=== PATIENT | male | born 1950 | race Caucasian/White ===

== ENCOUNTER 2018-03-02 09:41 | Emergency (ER) | payer MEDICARE ==
[~2018-03-02] VITALS: Ht 177.8 cm; Wt 98.0 kg
[2018-03-02] MEDS ORDERED: LIPITOR10 MG PO (09:53)
[2018-03-02] MEDS ORDERED: PIOGLITAZONE15 MG (09:53)
[2018-03-02] MEDS ORDERED: METFORMIN HCL500 MG PO (09:53)
[2018-03-02] MEDS ORDERED: IBUPROFEN 800800 M1 PO (11:40)
[2018-03-02] MEDS ORDERED: ROBAXIN500 MG PO (11:40)
[2018-03-02 11:56] VITALS: BP 134/63
== END 2018-03-02 11:57 | disposition home or self-care (01) ==
LOC: M.ERS 09:41
DX: M50.121 Cervical disc disorder at C4-C5 level with radiculopathy (principal); E11.9 Type 2 diabetes mellitus without complications; E78.5 Hyperlipidemia, unspecified

== ENCOUNTER → 2018-07-24 | Outpatient (CLI) | payer MEDICARE, OTHER ==
[~2018-07-24] MED LIST: IBUPROFEN 800800 M1 PO; LIPITOR10 MG PO; METFORMIN HCL500 MG PO; PIOGLITAZONE15 MG; ROBAXIN500 MG PO
== END ==
LOC: M.ULTRA 07:55
DX: E04.2 Nontoxic multinodular goiter (principal)

== ENCOUNTER 2019-03-09 02:50 | Emergency (ER) | payer MEDICARE, OTHER ==
[~2019-03-09] VITALS: Ht 177.8 cm; Wt 95.7 kg
[2019-03-09 02:57] VITALS: BP 164/91
[2019-03-09 03:18] LABS: ABSOLUTE EOSINOPHILS 0.3 thou/uL (0.0-0.7); ABSOLUTE LYMPHOCYTES 2.2 thou/uL (0.8-5.3); ABSOLUTE MONOCYTES 0.6 thou/uL (0.0-1.2); ABSOLUTE NEUTROPHILS 2.5 thou/uL (1.6-8.1); BASOPHILS 0.8 %; EOSINOPHILS 4.7 %; HEMATOCRIT 42.6 % (42.0-52.0); HEMOGLOBIN 14.4 gm/dL (14.0-18.0); LYMPHOCYTES 39.6 %; MCH 30.9 pg (26.0-34.0); MCHC 33.8 g/dL (28.0-37.0); MCV 91.3 fL (80.0-100.0); MONOCYTES 10.8 %; MPV 7.5 fl. (7.2-11.1); NUCLEATED RBCS 0 /100WBC; PLATELET COUNT* 159 thou/uL (150-400); POLYS 44.1 %; RBC 4.67 mil/uL (4.50-6.00); RDW-CV 13.5 % (10.5-14.5); WBC 5.7 thou/uL (4.0-11.0)
[2019-03-09 03:33] LABS: CALCIUM 9.6 mg/dL (8.5-10.1); POTASSIUM 3.6 mmol/L (3.5-5.1)
[2019-03-09 03:35] LABS: PROTIME 10.5 Seconds (9.20-11.50)
[2019-03-09 03:44] LABS: TOTAL BILIRUBIN 1.7 mg/dL (<0.1-1.0); TOTAL PROTEIN 7.2 g/dL (6.4-8.2)
[2019-03-09 04:36] LABS: URINE BILIRUBIN NEGATIVE (Negative); URINE BLOOD TRACE (Negative); URINE CLARITY CLEAR; URINE COLOR YELLOW; URINE GLUCOSE-RANDOM TRACE (Negative); URINE KETONES NEGATIVE (Negative); URINE LEUKOCYTES-REFLEX NEGATIVE (Negative); URINE NITRITE-REFLEX NEGATIVE (Negative); URINE PROTEIN NEGATIVE (Negative); URINE SPECIFIC GRAVITY <= 1.005 (1.005-1.030); URINE UROBILINOGEN 0.2 E.U./dl (0.2-1.0)
[2019-03-09] MEDS ORDERED: LOPRESSOR50 MG PO (06:23)
[2019-03-09 06:27] VITALS: BP 121/74
--- NOTE | 2019-03-10 08:41 | EKG ---
[place] [address] ELECTROCARDIOGRAM REPORT Name: LUÍS PATTON Room: [facility]#: [id number] Admission: 03/09/19 Attend Phys: Discharge: 03/09/19 Date of : 46 Report #: [id number] THIS REPORT FOR: //name// [facility] ED Test Date: 2019-03-09 Test Time: 02:55:23 Pat Name: LUÍS PATTON Department: Room: [facility] Gender: M Apprentice Photographer: : 1950 Requested By: Gina Fall Order Number: [id number] MD: Chandler Navas Measurements Intervals Dexter Rate: 124 P: [place]: QRS: 59 QRSD: 108 T: -10 QT: 313 QTc: 450 Interpretive Statements Atrial fibrillation Low voltage, extremity and precordial leads Repol abnrm suggests ischemia, anterior leads No previous ECG available for comparison Electronically Signed On 03-10-2019 8:40:57 CDT by Chandler Navas [email or web address] <ELECTRONICALLY SIGNED> By: Chandler Navas MD, [facility] 03/10/19 0840 0255 4 Chandler Navas MD, FACC /EPI
== END 2019-03-09 06:27 | disposition still patient (30) ==
LOC: M.ERS 02:50 → M.TBA-ER 04:09 → M.ERS 04:09
PROVIDERS: Emergency Medicine
DX: I48.91 Unspecified atrial fibrillation (principal); E11.9 Type 2 diabetes mellitus without complications; E78.5 Hyperlipidemia, unspecified